=== PATIENT | male | born 1960 | race Caucasian/White ===

== ENCOUNTER 2025-03-23 15:20 | Observation (INO) | payer BC ==
[2025-03-23 15:30] LABS: Glucose,Whole Blood 125 mg/dL (70-110)
[2025-03-23 15:57] LABS: Basophils # (A) 0.04 10*3/uL (0.00-0.10); Basophils % (A) 0.3 %; Eosinophils # (A) 0.28 10*3/uL (0.04-0.35); Eosinophils % (A) 2.1 %; HCT 49.4 % (39.6-50.0); HGB 17.5 g/dL (13.0-17.0); Lymphocytes # (A) 1.66 10*3/uL (0.90-5.00); Lymphocytes % (A) 12.7 %; MCH 34.4 pg (27.0-32.0); MCHC 35.4 g/dL (32.0-37.0); MCV 97.2 fL (80.0-97.0); Mean Platelet Volume 10.4 fL (9.5-12.2); Monocytes # (A) 0.96 10*3/uL (0.20-1.00); Monocytes % (A) 7.3 %; Neutrophils # (A) 10.07 10*3/uL (1.80-7.70); Neutrophils % (A) 77.1 %; Platelet Count 215 10*3/uL (140-440); RBC 5.08 10*6/uL (4.40-5.60); RDW 12.1 % (11.5-14.5); WBC 13.07 10*3/uL (4.50-10.00)
--- NOTE | 2025-03-23 15:57 | CT ---
CT brain without contrast HISTORY: Code stroke. COMPARISON: None TECHNIQUE: Multiple axial images are obtained from skull base to vertex without the use of IV contras t material. FINDINGS: The ventricles, basal cisterns and sulci over the convexities are within normal limits and there is n o mass effect or shift of midline structures. No abnormal density is seen throughout the brain parenchyma. There is no acute intra or extra-axial h emorrhage. The posterior fossa including the brainstem, fourth ventricle and cerebellopontine angles appear edyta sly normal. The intraorbital contents appear normal and symmetric. Visualized paranasal sinuses and mastoid air cells are well aerated. The calvarium is intact. IMPRESSION: No acute bleed or mass effect. [facility], , 03/23/2025 3:54 PM
[2025-03-23 16:17] LABS: Prothrombin Time 11.4 sec (10.0-12.5)
[2025-03-23 16:18] LABS: Partial Thromboplastin Time 26.9 sec (22.0-30.0)
--- NOTE | 2025-03-23 16:24 | CT ---
EXAMINATION TYPE: CT angio head neck DATE OF EXAM: 03/23/2025 COMPARISON: None CLINICAL INDICATION: Male, 64 years old with history of Neuro deficit, acute, stroke suspected; PHH, cva, confusion TECHNIQUE: CTA scan of the head and neck is performed with IV Contrast, patient injected with 65cc m L of Isovue 370, axial images are obtained, coronal and sagittal reformatted images are reviewed. 3D reconstructed images are created on an independent workstation and reviewed. CT DLP: 602.[address] CTDI: mGy Automated exposure control for dose reduction was used. NASCET criteria was used in interpretation of this exam? FINDINGS: The brachiocephalic origins are widely patent and no significant stenosis. There is no significant stenosis of the common or internal carotid arteries within the neck. There is no stenosis of the vertebral arteries. Intracranially, there is no stenosis, segmental occlusion, sizable aneurysm sac or vascular malformat ion. IMPRESSION:. No significant abnormality seen. NASCET criteria was used in interpretation of this exam? [facility], Workstation: [email or web address] 03/23/2025 4:21 PM
[2025-03-23 16:56] LABS: ALT 35 U/L (4-49); AST 29 U/L (17-59); African American GFR (CKD) >90 (>60 ml/min/1.73 sqM); Albumin 4.1 g/dL (3.5-5.0); Alkaline Phosphatase 74 U/L (38-126); Anion Gap 11 mmol/L; Blood Urea Nitrogen 21 mg/dL (9-20); Calcium 9.3 mg/dL (8.4-10.2); Carbon Dioxide 22 mmol/L (22-30); Chloride 103 mmol/L (98-107); Creatine Kinase 104 U/L (55-170); Glucose 104 mg/dL (74-99); Non-African American GFR(CKD) >90 (>60 ml/min/1.73 sqM); Potassium 4.1 mmol/L (3.5-5.1); Sodium 136 mmol/L (137-145); Total Bilirubin 1.1 mg/dL (0.2-1.3); Total Protein 6.5 g/dL (6.3-8.2)
--- NOTE | 2025-03-23 17:02 | ED ---
Altered Mental Status HPI - General Chief Complaint: Altered Mental Status Stated Complaint: AMS Time Seen by Provider: 03/23/25 15:35 Source: patient, EMS Mode of arrival: EMS - History of Present Illness Initial Comments: 64-year-old male with past medical history of tremor who presents emergency department with altered mental status. EMS provide history. Patient was at work approximately 1 hour ago and his coworkers state that he was acting normally. He was then driving home when he was talking to his son on the phone. The son then called the who called EMS. Upon picking the patient up they noted that he had very repetitive speech. He did have some slurred speech and was disoriented in regards to place and time. Patient does have a tremor for wh ich she takes propranolol and states that this is no different than his typical. He denies headaches or visual changes. No weakness in his arms or legs. Upon questioning the patient he thinks it is May. He cannot tell me the president. He does have mild dysarthria. No recent head injuries. No chest pain or difficulty breathing. No other alleviating, precipitating or modifying factors - Related Data Home Medications Medication Instructions Recorded Confirmed Azelastine HCl [Astelin Nasal 1 spr EA NOSTRIL DAILY 03/23/25 03/23/25 [place]] Propranolol LA [Inderal LA] 60 mg PO DAILY 03/23/25 03/23/25 Allergies Allergy/AdvReac Type Severity Reaction Status Date / Time No Known Allergies Allergy Verified 03/23/25 16:40 Review of Systems ROS Statement: Those systems with pertinent positive or pertinent negative responses have been documented in the HPI. ROS Other: All systems not noted in ROS Statement are negative. Past Medical History Past Medical History: Hypertension Additional Past Medical History / Comment(s): Tremors History of Any Multi-Drug Resistant Organisms: None Reported Past Surgical History: Orthopedic Surgery, Tonsillectomy Additional Past Surgical History / Comment(s): left knee surgery Past Psychological History: No Psychological Hx Reported Smoking Status: Vaper Past Alcohol Use History: Daily Past Drug Use History: Marijuana General Exam Limitations: altered mental status General appearance: alert, other (oriented to self. Thinks its May. ) Head exam: Present: atraumatic, normocephalic, normal inspection Eye exam: Present: normal appearance, PERRL, EOMI. Absent: scleral icterus, conjunctival injection, periorbital swelling ENT exam: Present: normal exam, mucous membranes moist Neck exam: Present: normal inspection. Absent: tenderness, meningismus, lymphadenopathy Respiratory exam: Present: normal lung sounds bilaterally. Absent: respiratory distress, wheezes, rales, rhonchi, stridor Cardiovascular Exam: Present: regular rate, normal rhythm, normal heart sounds. Absent: systolic murmur, diastolic murmur, rubs, gallop, clicks GI/Abdominal exam: Present: soft, normal bowel sounds. Absent: distended, tenderness, guarding, rebound, rigid Extremities exam: Present: normal inspection, full ROM, normal capillary refill. Absent: tenderness, pedal edema, joint swelling, calf tenderness Neurological exam: Present: other (mild dysarthria) Psychiatric exam: Present: normal affect, normal mood Skin exam: Present: warm, dry, intact, normal color. Absent: rash Course Vital Signs 03/23/25 03/23/25 03/23/25 15:24 17:29 19:36 Temperature 98.3 F Pulse Rate 65 71 78 Respiratory 20 16 18 Rate Blood Pressure 162/107 145/89 141/86 O2 Sat by Pulse 96 98 98 Oximetry Medical Decision Making - Medical Decision Making Was pt. sent in by a medical professional or institution ([facility], [facility]EMAN, urgent care, hospital, or alf...) When possible be specific @ -[No] Did you speak to anyone other than the patient for history (EMS, parent, family, police, friend...)? What history was obtained from this source @ -I spoke with EMS for history Did you review nursing and triage notes (agree or disagree)? Why? @ -[I reviewed and agree with nursing and triage notes] Were old charts reviewed (outside hosp., previous admission, EMS record, old EKG, old radiological studies, urgent care reports/EKG's, alf records)? Report findings @ -[No old charts were reviewed] Differential Diagnosis (chest pain, altered mental status, abdominal pain women, abdominal pain men, vaginal bleeding, weakness, fever, dyspnea, syncope, headache, dizziness, GI bleed, back pain, seizure, CVA, palpatations, mental health, musculoskeletal)? @ -Differential Altered Mental Status: Hypoglycemia, DKA, hypercapnia, ETOH, overdose, CO poisoning, trauma, myxedema coma, HTN encephalopathy, infection, encephalitis, psychosis, intercranial hemorrhage, hepatic encephalopathy, meningitis, CVA, this is not meant to be an all-inclusive list EKG interpreted by me (3pts min.). @ -Yes which demonstrates sinus rhythm with a rate of 65. MA interval 155. QRS 80. QTc of 395. No acute ST segment elevations or depressions X-rays interpreted by me (1pt min.). @ -Yes which demonstrates no acute process CT interpreted by me (1pt min.). @ -Chest which demonstrates no acute process U/S interpreted by me (1pt. min.). @ -[None done] What testing was considered but not performed or refused? (CT, X-rays, U/S, labs)? Why? @ -[None] What meds were considered but not given or refused? Why? @ -TNK was considered however patient has low NIH to start which does resolved to 0. Risk versus benefit risk does outweigh benefit for which the patient and family is agreeable that the patient should not receive this medication Did you discuss the management of the patient with other professionals ( professionals i.e. , PA, HEAD LINEMAN, lab, RT, psych nurse, oncology social work, gill tender, teacher, hospital chief financial officer, transplant case manager)? Give summary @ -I spoke with Dr. Castillo who does not feel that the patient should receive TNKase Was smoking cessation discussed for >3mins.? @ -[No] Was critical care preformed (if so, how long)? @ -35 minutes for code stroke activation Were there social determinants of health that impacted care today? How? (Homelessness, low income, unemployed, alcoholism, drug addiction, tr ansportation, low edu. Level, literacy, decrease access to med. care, group home, rehab)? @ -[No] Was there de-escalation of care discussed even if they declined (Discuss DNR or withdrawal of care, Hospice)? DNR status @ -[No] What co-morbidities impacted this encounter? (DM, HTN, Smoking, COPD, CAD, Ca ncer, CVA, ARF, Chemo, Hep., AIDS, mental health diagnosis, sleep apnea, morbid obesity)? @ -Tremor, hypertension Was patient admitted / discharged? Hospital course, mention meds given and route, prescriptions, significant lab abnormalities, going to OR and other pertinent info. @ -On arrival patient seen and evaluated Undiagnosed new problem with uncertain prognosis? @ -[No] Drug Therapy requiring intensive monitoring for toxicity (Heparin, Nitro, Insulin, Cardizem)? @ -[No] Were any procedures done? @ -[No] Diagnosis/symptom? @ -[default] Acute, or Chronic, or Acute on Chronic? @ -[default] Uncomplicated (without systemic symptoms) or Complicated (systemic symptoms)? @ -[default] Side effects of treatment? @ -[No] Exacerbation, Progression, or Severe Exacerbation? @ -[No] Poses a threat to life or bodily function? How? (Chest pain, USA, ME, pneumonia, PE, COPD, DKA, ARF, appy, cholecystitis, CVA, Diverticulitis, Homicidal, Suicidal, threat to staff... and all critical care pts) @ -[No] - Lab Data Result diagrams: 03/23/25 15:46 03/23/25 16:17 Lab Results 03/23/25 03/23/25 03/23/25 Range/Units 15:28 15:46 15:46 WBC 13.07 H (4.50-10.00) 10*3/uL RBC 5.08 (4.40-5.60) 10*6/uL Hgb 17.5 H (13.0-17.0) g/dL Hct 49.4 (39.6-50.0) % MCV 97.2 H (80.0-97.0) fL MCH 34.4 H (27.0-32.0) pg MCHC 35.4 (32.0-37.0) g/dL Plt Count 215 (140-440) 10*3/uL MPV 10.4 (9.5-12.2) fL Immature Gran % (Auto) 0.5 % Neutrophils % 77.1 % Lymphocytes % 12.7 % Monocytes % 7.3 % Eosinophils % 2.1 % Basophils % 0.3 % Immature Gran # 0.06 H (0.00-0.04) 10*3/uL Neutrophils # 10.07 H (1.80-7.70) 10*3/uL Lymphocytes # 1.66 (0.90-5.00) 10*3/uL Monocytes # 0.96 (0.20-1.00) 10*3/uL Eosinophils # 0.28 (0.04-0.35) 10*3/uL Basophils # 0.04 (0.00-0.10) 10*3/uL PT 11.4 (10.0-12.5) sec INR 1.0 (<1.2) APTT 26.9 (22.0-30.0) sec Sodium (137-145) mmol/L Potassium (3.5-5.1) mmol/L Chloride (98-107) mmol/L Carbon Dioxide (22-30) mmol/L Anion Gap mmol/L BUN (9-20) mg/dL Creatinine (0.66-1.25) mg/dL Est GFR (CKD-EPI)AfAm (>60 ml/min/1.73 sqM) Est GFR (CKD-EPI)NonAf (>60 ml/min/1.73 sqM) Glucose (74-99) mg/dL POC Glucose (mg/dL) 125 H (70-110) mg/dL POC Glu Director Of Field Coordination ID Schultz Sameera Calcium (8.4-10.2) mg/dL Total Bilirubin (0.2-1.3) mg/dL AST (17-59) U/L ALT (4-49) U/L Alkaline Phosphatase (38-126) U/L Creatine Kinase (55-170) U/L Troponin I (0.000-0.034) ng/mL Total Protein (6.3-8.2) g/dL Albumin (3.5-5.0) g/dL 03/23/25 03/23/25 Range/Units 16:17 16:17 WBC (4.50-10.00) 10*3/uL RBC (4.40-5.60) 10*6/uL Hgb (13.0-17.0) g/dL Hct (39.6-50.0) % MCV (80.0-97.0) fL MCH (27.0-32.0) pg MCHC (32.0-37.0) g/dL Plt Count (140-440) 10*3/uL MPV (9.5-12.2) fL Immature Gran % (Auto) % Neutrophils % % Lymphocytes % % Monocytes % % Eosinophils % % Basophils % % Immature Gran # (0.00-0.04) 10*3/uL Neutrophils # (1.80-7.70) 10*3/uL Lymphocytes # (0.90-5.00) 10*3/uL Monocytes # (0.20-1.00) 10*3/uL Eosinophils # (0.04-0.35) 10*3/uL Basophils # (0.00-0.10) 10*3/uL PT (10.0-12.5) sec INR (<1.2) APTT (22.0-30.0) sec Sodium 136 L (137-145) mmol/L Potassium 4.1 (3.5-5.1) mmol/L Chloride 103 (98-107) mmol/L Carbon Dioxide 22 (22-30) mmol/L Anion Gap 11 mmol/L BUN 21 H (9-20) mg/dL Creatinine 0.87 (0.66-1.25) mg/dL Est GFR (CKD-EPI)AfAm >90 (>60 ml/min/1.73 sqM) Est GFR (CKD-EPI)NonAf >90 (>60 ml/min/1.73 sqM) Glucose 104 H (74-99) mg/dL POC Glucose (mg/dL) (70-110) mg/dL POC Glu Director Of Field Coordination ID Calcium 9.3 (8.4-10.2) mg/dL Total Bilirubin 1.1 (0.2-1.3) mg/dL AST 29 (17-59) U/L ALT 35 (4-49) U/L Alkaline Phosphatase 74 (38-126) U/L Creatine Kinase 104 (55-170) U/L Troponin I <0.012 (0.000-0.034) ng/mL Total Protein 6.5 (6.3-8.2) g/dL Albumin 4.1 (3.5-5.0) g/dL Disposition Clinical Impression: Acute encephalopathy Disposition: ADMITTED IP TO THIS [facility] Condition: Stable Is patient prescribed a controlled substance at d/c from ED?: No Time of Disposition: 17:22 Decision to Admit Reason: Admit from EC Decision Date: 03/23/25 Decision Time: 17:22
[2025-03-23] MEDS ORDERED: NALOXONE 0.4 MG/ML 1 ML VIAL IV PRN (17:22)
--- NOTE | 2025-03-23 18:09 | XR ---
EXAMINATION TYPE: XR chest 2V DATE OF EXAM: 03/23/2025 5:53 PM COMPARISON: None CLINICAL INDICATION: Male, 64 years old with history of altered mental status; [facility] TECHNIQUE: XR chest 2V Frontal and lateral views of the chest. FINDINGS: Lungs/Pleura: There is no evidence of pleural effusion, focal consolidation, or pneumothorax. Pulmonary vascularity: Unremarkable. Heart/mediastinum: Cardiomediastinal silhouette is unremarkable. Musculoskeletal: No acute osseous pathology. Other findings: None IMPRESSION: No acute cardiopulmonary disease/process. [facility], , 03/23/2025 6:07 PM
[2025-03-23] MEDS: ASPIRIN 325 MG TAB PO STA (18:18)
[2025-03-23] MEDS: ATORVASTATIN 40 MG TAB PO SCH (18:19)
[2025-03-23 21:53] VITALS: RESP 16
[2025-03-24 03:51] VITALS: TEMP 97.9
[2025-03-24 06:18] LABS: Appearance,Urine Clear (Clear); Bilirubin,Urine Negative (Negative); Blood,Urine Negative (Negative); Color,Urine Yellow; Glucose,Urine (UA) Negative (Negative); Ketones,Urine Negative (Negative); Leukocyte Esterase,Urine Negative (Negative); Nitrite,Urine Negative (Negative); PH, Urine 5.5 (5.0-8.0); Protein,Urine Negative (Negative); Specific Gravity,Urine 1.037 (1.001-1.035); Urobilinogen,Urine <2.0 mg/dL (<2.0)
[2025-03-24 06:30] LABS: Cocaine Screen,Urine Not Detected (NotDetected); Opiate Screen,Urine Not Detected (NotDetected); Phencyclidine Screen,Urine Not Detected (NotDetected); Urn Cannabinoid Scrn Not Detected (NotDetected)
[2025-03-24 06:31] LABS: Amphetamine Screen,Urine Not Detected (NotDetected); Barbiturate Screen,Urine Not Detected (NotDetected); Benzodiazepines Screen,Urine Not Detected (NotDetected); Methadone Screen, Urine Not Detected (NotDetected); Oxycodone Screen, Urine Not Detected (NotDetected); Tricyclic Antidepressant,Urine Not Detected (NotDetected)
[2025-03-24 08:21] VITALS: BP 136/85; PULSE 61
[2025-03-24] MEDS: ASPIRIN 325 MG TAB PO SCH (08:52)
[2025-03-24] MEDS: PROPRANOLOL LA 60 MG CAP.SA.24H PO SCH (08:53)
[2025-03-24] MEDS ORDERED: ASPIRIN 81 MG PO SCH (09:00)
[2025-03-24 09:37] LABS: Basophils # (A) 0.03 X 10*3/uL (0.00-0.10); Basophils % (A) 0.3 %; Eosinophils # (A) 0.25 X 10*3/uL (0.04-0.35); Eosinophils % (A) 2.9 %; HCT 45.1 % (39.6-50.0); HGB 14.9 g/dL (13.0-17.0); Lymphocytes # (A) 2.26 X 10*3/uL (0.90-5.00); Lymphocytes % (A) 25.9 %; MCH 33.1 pg (27.0-32.0); MCV 100.2 FL (80.0-97.0); Monocytes # (A) 1.03 X 10*3/uL (0.20-1.00); Monocytes % (A) 11.8 %; NRBC Per 100 WBC 0 X 10*3/uL (0.00-0.01); Neutrophils # (A) 5.09 X 10*3/uL (1.80-7.70); Neutrophils % (A) 58.4 %; Platelet Count 208 X 10*3/uL (140-440); RDW 12.6 % (11.5-14.5); WBC 8.72 X 10*3/uL (4.50-10.00)
[2025-03-24 09:46] LABS: Chol/HDL Ratio 5.12 Ratio
[2025-03-24 09:47] LABS: BUN/Creat Ratio 17.36 Ratio (12.00-20.00); Blood Urea Nitrogen 19.1 mg/dL (9.0-27.0); Calcium 8.8 mg/dL (8.7-10.3); Carbon Dioxide 26.1 mmol/L (21.6-31.8); Chloride 106 mmol/L (96-109); Glucose 96 mg/dL (70-110); Potassium 3.8 mmol/L (3.5-5.5); Sodium 142 mmol/L (135-145)
--- NOTE | 2025-03-24 12:22 | P.CNNES ---
History of Present Illness Consult date: 03/24/25 Reason for Consult: Acute encephalopathy, possible stroke History of Present Illness: The patient is a 64-year-old male who was seen in neurologic consultation on March 24, 2025, in collaboration with Lydna Crisostomo, via teleneurology. History is obtained from review of the chart. Patient was reportedly at work when he was noted by coworkers to be acting strangely. He then got in his car to and was reportedly speaking with his on the phone. The found the patient to be confused and not speaking correctly. She reportedly called their son and advised him of his father's condition. She also reportedly called EMS. Apparently EMS came to the patient's home and found the patient confused. The patient was reportedly repeating the same question. He was brought into the emergency department. In the ER, CT scan of the brain w as performed. There was no reported evidence of acute hemorrhage or infarct. The patient denies a history of stroke, seizure and similar symptoms. This morning, the patient reports feeling fine. According to the patient's son who is present at the bedside at the time of the evaluation, the patient started to come around approximately 1 hour after being in the emergency department. The patient blood pressure was markedly elevated in the ER. It is now back to normal. Past Medical History Past Medical History: Hypertension Additional Past Medical History / Comment(s): Tremors History of Any Multi-Drug Resistant Organisms: None Reported Past Surgical History: Orthopedic Surgery, Tonsillectomy Additional Past Surgical History / Comment(s): left knee surgery Past Anesthesia/Blood Transfusion Reactions: No Reported Reaction Past Psychological History: No Psychological Hx Reported Smoking Status: Vaper Past Alcohol Use History: Daily Past Drug Use History: Marijuana - Past Family History Father Family Medical History: Unable to Obtain Mother Family Medical History: Unable to Obtain Medications and Allergies Home Medications Medication Instructions Recorded Confirmed Type Azelastine HCl [Astelin Nasal 1 spr EA NOSTRIL DAILY 03/23/25 03/23/25 History [place]] Propranolol LA [Inderal LA] 60 mg PO DAILY 03/23/25 03/23/25 History Allergies Allergy/AdvReac Type Severity Reaction Status Date / Time No Known Allergies Allergy Verified 03/23/25 16:40 Physical Examination - Vital Signs Vital Signs: Vital Signs Temp Pulse Pulse Resp BP BP Pulse Ox 03/24/25 02:25 97.9 F 60 16 121/66 96 03/23/25 20:21 97.7 F 70 16 129/75 94 L 03/23/25 19:36 78 18 141/86 98 03/23/25 17:29 71 16 145/89 98 03/23/25 15:24 98.3 F 65 20 162/107 96 Intake and Output 03/23/25 03/24/25 03/24/25 22:59 06:59 14:59 Other: # Voids 1 1 Weight 98.883 kg General: The patient is well-nourished, well-developed and in no acute distress HEENT: Head is atraumatic, normocephalic. Fundus not visualized. There is no scleral icterus. Mucous membranes are moist. Neck: Supple without carotid bruits Heart: Regular rate and rhythm Lungs: There is no cough or shortness of breath Extremities: Without edema Neurological examination Mental status: The patient is awake, alert and oriented x 3. His speech is clear. There is no dysarthria or aphasia. Cranial nerves: Pupils are equal at 3 mm and reactive. Visual islas are full to confrontation. Extraocular movements are intact. There is no nystagmus. Facial sensation is intact. There is no facial asymmetry. Hearing is grossly intact. Uvula and palate are midline. Shoulder shrug is symmetric. Tongue protrudes midline. Motor: Strength is 5/5 throughout, with the exception of the right hip flexor which is 4/5, secondary to pain Sensory: Intact to light touch throughout. There is no extinction with double simultaneous stimulation. Deep tendon reflexes: 2+/4+ throughout Coordination: [id number] and rapid alternating movements are intact. There is no pronator drift. Dndy-ck-szcm testing is intact. There is no evidence of intention tremor on the examination. Gait: Not assessed Results CT scan of the brain images have been personally viewed. I agree with the radiology report - Laboratory Findings CBC and BMP: 03/24/25 06:09 03/24/25 06:09 Abnormal Lab Findings: Abnormal Labs 03/23/25 03/23/25 03/23/25 15:28 15:46 16:17 WBC 13.07 H Hgb 17.5 H MCV 97.2 H MCH 34.4 H Immature Gran # 0.06 H Neutrophils # 10.07 H Sodium 136 L BUN 21 H Glucose 104 H POC Glucose (mg/dL) 125 H Ur Specific [place] 03/24/25 06:00 WBC Hgb MCV MCH Immature Gran # Neutrophils # Sodium BUN Glucose POC Glucose (mg/dL) Ur Specific [place] 1.037 H Assessment and Plan Assessment: 1. Transient global amnesia-the patient is back to his baseline. Etiology for transient global amnesia continues to be unknown. EEG and MRI of the brain will not give any additional information. 2. Elevated blood pressure Plan: 1. At this point in time, the patient is back to his baseline. There is no indication for further neurologic workup 2. The patient is neurologically stable for discharge and is advised to follow- up with his outpatient neurologist Time with Patient: Greater than 30 (65 minutes were spent caring for this patient today including, obtaining history, examining the patient, reviewing imaging, chart documentation, labs, placing orders and creating this note)
--- NOTE | 2025-03-24 13:13 | P.HPIM ---
History of Present Illness H&P Date: 03/24/25 Patient is a 64-year-old male with hypertension, history of tremors (Dr. Shen), here for evaluation of altered mental status. Per EMS, was still well around 03/23 around 1:30pm. As he was driving home talking to his on the phone and sounded confused, his called the patient's son who then called EMS. Upon evaluation by EMS, they reported that he had very repetitive speech with some slurring and disoriented in regards to place and time. At the time of my evaluation, patient cannot remember the events of after he got confused and only remember that he had an interview that day and he could only remember that he started the interview. At the time of my evaluation, per family his mental status was at baseline. He denied focal weakness, vision changes, speech headaches, recent trauma, chest pain, shortness of breath, abdomen pain. Patient takes propranolol for his tremors. On admission: Vitals: Temp 98.3 F, pulse 65, RR 20, BP 162/107, O2 saturation 96% on room air Labs: WBC 13, hemoglobin 17.5, MCV 97.2, platelet count 215,000, sodium 136, potassium 4.1, bicarb 22, BUN 21, creatinine 0.87, glucose 104, calcium 9.3. Troponin negative at less than 0.0 12. Creatinine kinase 104. Liver enzymes within normal limits. Urinalysis was unremarkable. UDS negative.. Imaging: EKG independently interpreted showed sinus rhythm with a rate of 65, normal axis, no ST-T changes, QTc 395 MS. Chest x-ray showed no acute cardiopulmonary process or disease. CT angiography of the brain and neck showed no significant abnormalities seen brain CT showed no acute process, bleed or mass effect. ED documentation reviewed. Review of systems: Pertinent positives and negatives as discussed in HPI, a complete review of systems was performed and all other systems are negative. Physical examination: Vital signs reviewed General: non toxic, no distress, appears at stated age, room air Derm: no unusual rashes/lesions, warm Head: atraumatic, normocephalic, symmetric Eyes: EOMI, anicteric sclera, pupils equal round reactive to light ENT: Nose and ears atraumatic Neck: No cervical lymphadenopathy, trachea midline, supple Mouth: no lip lesion, mucus membranes moist Cardiovascular: S1S2 reg, no murmur Lungs: CTA bilateral, no rhonchi, no rales, no accessory muscle use Abdominal: soft, nondistended, nontender to palpation, no guarding Ext: muscle strength 5 out of 5 in all 4 extremities grossly, no gross muscle atrophy, no contractures, positive dorsalis pedis pulse bilateral, no edema Neuro: CN II-XI grossly intact, no gross focal neuro deficits Psych: Alert and oriented x 3, appropriate affect and mood Assessment/Plan: The patient is admitted with an anticipated greater than 2 midnight stay for evaluation of acute encephalopathy and dysarthria to rule out CVA Active: #. Acute encephalopathy, amnesia and dysarthria, r/o CVA -CT angiography of the brain and neck showed no significant abnormalities seen -Brain CT showed no acute process, bleed or mass effect -Continue with Neurochecks -Continue with Cardiac telemetry -EKG independently interpreted showed sinus rhythm with a rate of 65, normal axis, no ST-T changes, QTc 395 MS. -Brain MRI ordered -Lipid profile and A1c ordered -Aspirin 325 given in the ED. Continue with aspirin 81 daily -Consult neurology -Consult PT/OT -Consult SP Chronic Conditions: #. Essential tremors Continue home propranolol 60 mg p.o. daily DVT ppx: SCDs for now CODE STATUS: Full Discussed with: Patient Anticipated discharge place: home Kavitha Mario MD PGY-1 Internal Medicine Dictation was produced using [employer] dictation software. please excuse any grammatical, word or spelling errors. Attestation: I have seen and examined this patient with my resident, assessment and plan discussed with the resident, agree with assessment and plan as written above. Dr. Weiss Past Medical History Past Medical History: Hypertension Additional Past Medical History / Comment(s): Tremors History of Any Multi-Drug Resistant Organisms: None Reported Past Surgical History: Orthopedic Surgery, Tonsillectomy Additional Past Surgical History / Comment(s): left knee surgery Past Anesthesia/Blood Transfusion Reactions: No Reported Reaction Past Psychological History: No Psychological Hx Reported Smoking Status: Vaper Past Alcohol Use History: Daily Past Drug Use History: Marijuana - Past Family History Father Family Medical History: Unable to Obtain Mother Family Medical History: Unable to Obtain Medications and Allergies Home Medications Medication Instructions Recorded Confirmed Type Azelastine HCl [Astelin Nasal 1 spr EA NOSTRIL DAILY 03/23/25 03/23/25 History [place]] Propranolol LA [Inderal LA] 60 mg PO DAILY 03/23/25 03/23/25 History Aspirin 81 mg PO DAILY #30 tab 03/24/25 Rx Atorvastatin [Lipitor] 40 mg PO DAILY #30 tab 03/24/25 Rx Allergies Allergy/AdvReac Type Severity Reaction Status Date / Time No Known Allergies Allergy Verified 03/23/25 16:40 Physical Exam Vitals: Vital Signs Temp Pulse Pulse Resp BP BP Pulse Ox 03/24/25 02:25 97.9 F 60 16 121/66 96 03/23/25 20:21 97.7 F 70 16 129/75 94 L 03/23/25 19:36 78 18 141/86 98 03/23/25 17:29 71 16 145/89 98 03/23/25 15:24 98.3 F 65 20 162/107 96 Intake and Output 03/23/25 03/24/25 03/24/25 22:59 06:59 14:59 Other: # Voids 1 1 Weight 98.883 kg Results CBC & Chem 7: 03/24/25 06:09 03/24/25 06:09 Labs: Abnormal Lab Results - Last 24 Hours (Table) 03/23/25 03/23/25 03/23/25 Range/Units 15:28 15:46 16:17 WBC 13.07 H (4.50-10.00) 10*3/uL Hgb 17.5 H (13.0-17.0) g/dL MCV 97.2 H (80.0-97.0) fL MCH 34.4 H (27.0-32.0) pg Immature Gran # 0.06 H (0.00-0.04) 10*3/uL Neutrophils # 10.07 H (1.80-7.70) 10*3/uL Sodium 136 L (137-145) mmol/L BUN 21 H (9-20) mg/dL Glucose 104 H (74-99) mg/dL POC Glucose (mg/dL) 125 H (70-110) mg/dL Ur Specific [place] (1.001-1.035) 03/24/25 Range/Units 06:00 WBC (4.50-10.00) 10*3/uL Hgb (13.0-17.0) g/dL MCV (80.0-97.0) fL MCH (27.0-32.0) pg Immature Gran # (0.00-0.04) 10*3/uL Neutrophils # (1.80-7.70) 10*3/uL Sodium (137-145) mmol/L BUN (9-20) mg/dL Glucose (74-99) mg/dL POC Glucose (mg/dL) (70-110) mg/dL Ur Specific [place] 1.037 H (1.001-1.035) Thrombosis Risk Factor Assmnt - Choose All That Apply Any of the Below Risk Factors Present?: Yes Each Factor Represents 1 point: Obesity (BMI >25) Other Risk Factors: Yes Each Risk Factor Represents 2 Points: Age 61-74 years Other congenital or acquired thrombophilia - If yes, enter type in comment: No Thrombosis Risk Factor Assessment Total Risk Factor Score: 3 Thrombosis Risk Factor Assessment Level: Moderate Risk
--- NOTE | 2025-03-24 14:58 | P.DS ---
Providers Date of admission: 03/23/25 17:40 Attending physician: Deepali Esquivel Consults: 03/23/25 17:22 Consult Physician Urgent Consulting Provider: Joaquin West Consult Reason/Comments: acute encephalopathy, possible cva Do you want consulting provider notified?: Yes Primary care physician: Physician Nonstaff Hospital Course: Hospital Course: Patient is a 64-year-old male with hypertension, history of tremors (Dr. Shen), here for evaluation of altered mental status. Per EMS, was still well around 03/23 around 1:30pm. As he was driving home talking to his on the phone and sounded confused, his called the patient's son who then called EMS. Upon evaluation by EMS, they reported that he had very repetitive speech with some slurring and disoriented in regards to place and time. At the time of my evaluation, patient cannot remember the events of after he got confused and only remember that he had an interview that day and he could only remember that he started the interview. At the time of my evaluation, per family his mental status was at baseline. He denied focal weakness, vision changes, speech headaches, recent trauma, chest pain, shortness of breath, abdomen pain. Sherice ent takes propranolol for his tremors. On admission: Vitals: Temp 98.3 F, pulse 65, RR 20, BP 162/107, O2 saturation 96% on room air Labs: WBC 13, hemoglobin 17.5, MCV 97.2, platelet count 215,000, sodium 136, potassium 4.1, bicarb 22, BUN 21, creatinine 0.87, glucose 104, calcium 9.3. Troponin negative at less than 0.0 12. Creatinine kinase 104. Liver enzymes within normal limits. Urinalysis was unremarkable. UDS negative.. Imaging: EKG independently interpreted showed sinus rhythm with a rate of 65, normal axis, no ST-T changes, QTc 395 MS. Chest x-ray showed no acute cardiopulmonary process or disease. CT angiography of the brain and neck showed no significant abnormalities seen brain CT showed no acute process, bleed or mass effect. Patient was admitted for evaluation of acute encephalopathy, amnesia and dysarthria to rule out CVA. Neurology consulted. Ordered high-dose aspirin, statin, brain MRI, lipid profile and A1c. Neurochecks cardiac telemetry with continued. Lipid panel showed elevated LDL 142 and elevated triglycerides 163. Macrocytosis was noted on labs and B12 and folate levels ordered. Upon evaluation patient symptoms have improved throughout his stay and no complications of occurred. Patient has been cleared by neurology for discharge and brain MRI was canceled. Patient is advised to take aspirin 81 mg and statin 40 mg on discharge and to follow-up with neurologist for evaluation of amnesia. A1c, B12 and folate levels can be followed up on outpatient basis. Final Diagnosis: #. Acute encephalopathy, amnesia and dysarthria, CVA ruled out #. Hyperlipidemia #. Macrocytosis #. Essential tremors Physical examination: Vital signs reviewed General: non toxic, no distress Derm: no unusual rashes/lesions, warm Head: atraumatic, normocephalic, symmetric Eyes: EOMI, anicteric sclera, pupils equal round reactive to light ENT: Nose and ears atraumatic Neck: No cervical lymphadenopathy, trachea midline, supple Mouth: no lip lesion, mucus membranes moist Cardiovascular: S1S2 reg, no murmur Lungs: CTA bilateral, no rhonchi, no rales, no accessory muscle use Abdominal: soft, nondistended, nontender to palpation, no guarding Ext: muscle strength 5 out of 5 in all 4 extremities grossly, no gross muscle atrophy, no contractures, positive dorsalis pedis pulse bilateral, no edema Neuro: CN II-XI grossly intact, no gross focal neuro deficits Psych: Alert, oriented, appropriate affect and mood Attestation: I have seen and examined this patient with my resident, assessment and plan discussed with the resident, agree with assessment and plan as written above. Dr. Weiss Patient Condition at Discharge: Stable Plan - Discharge Summary Discharge Rx Participant: No New Discharge Prescriptions: New Aspirin 81 mg PO DAILY #30 tab Atorvastatin [Lipitor] 40 mg PO DAILY #30 tab Continue Azelastine HCl [Astelin Nasal [place]] 1 spr EA NOSTRIL DAILY Propranolol LA [Inderal LA] 60 mg PO DAILY Discharge Medication List Azelastine HCl [Astelin Nasal [place]] 1 spr EA NOSTRIL DAILY 03/23/25 [History] Propranolol LA [Inderal LA] 60 mg PO DAILY 03/23/25 [History] Aspirin 81 mg PO DAILY #30 tab 03/24/25 [Rx] Atorvastatin [Lipitor] 40 mg PO DAILY #30 tab 03/24/25 [Rx] Follow up Appointment(s)/Referral(s): Nonstaff,Physician [Primary Care Provider] - 1-2 days Activity/Diet/Wound Care/Special Instructions: Follow up with neurologist and PCP Discharge Disposition: HOME SELF-CARE
[2025-03-25] MEDS ORDERED: ASPIRIN 81 MG PO SCH (09:00)
== END 2025-03-24 16:17 | disposition home or self-care (01) ==
LOC: EC 15:20 → 6NMEDSUR 17:40
PROVIDERS: ADMIT Hospitalist; ATTEND Hospitalist
DX: G93.40 Encephalopathy, unspecified (principal); I10 Essential (primary) hypertension; G25.0 Essential tremor; E78.1 Pure hyperglyceridemia; R47.1 Dysarthria and anarthria; R41.3 Other amnesia; D75.89 Other specified diseases of blood and blood-forming organs; Z68.30 Body mass index [BMI] 30.0-30.9, adult; E66.9 Obesity, unspecified; F17.290 Nicotine dependence, other tobacco product, uncomplicated; Z79.899 Other long term (current) drug therapy
CPT/HCPCS: 99291; 36415; 93005; 97161; 82747; 80061; 80053; 80048; 82607; 82550; 84484; 85025 ×2; 85610; 85730; 81003; 80306; 83036; 71046; 70496; 70450; 70498; G0378 ×2; Q9967